=== PATIENT | female | born 1980 | race Caucasian/White ===

== ENCOUNTER 2019-02-23 17:43 | Emergency (ER) | payer OTHER ==
[~2019-02-23] VITALS: Ht 167.6 cm; Wt 104.3 kg
[2019-02-23] MEDS ORDERED: CYMBALTA30 MG PO (18:00)
[2019-02-23] MEDS ORDERED: VERAPAMIL E.R240 M1 PO (18:00)
[2019-02-23] MEDS ORDERED: TELMISARTAN-HC1 EAC1 PO (18:00)
[2019-02-23] MEDS ORDERED: CELEXA40 MG PO (18:00)
[2019-02-23] MEDS ORDERED: VALACYCLOVIR500 MG PO (18:01)
[2019-02-23] MEDS ORDERED: MINOCYCLINE HC100 M2 PO (18:01)
[2019-02-23] MEDS ORDERED: METFORMIN HCL500 MG PO (18:01)
[2019-02-23] MEDS ORDERED: LO LOESTRIN FE1 EACH PO (18:01)
[2019-02-23] MEDS ORDERED: OMEPRAZOLE40 MG PO (18:01)
[2019-02-23] MEDS ORDERED: OZEMPIC0.25 MG/0. SUBQ (18:02)
[2019-02-23] MEDS ORDERED: KETOCONAZOLE15 GM TOP (18:02)
[2019-02-23] MEDS ORDERED: ACZONE60 GM TOP (18:02)
[2019-02-23] MEDS ORDERED: RESTORIL30 MG PO (18:04)
[2019-02-23] MEDS ORDERED: IMITREX20 MG NASAL (18:04)
[2019-02-23] MEDS ORDERED: FLONASE 0.05%50 MCG NASAL (18:04)
[2019-02-23] MEDS ORDERED: ATIVAN1 MG PO (18:04)
[2019-02-23] MEDS ORDERED: ROBAXIN 750 MG750 MG PO (20:00)
[2019-02-23 20:28] VITALS: BP 144/81
== END 2019-02-23 20:29 | disposition home or self-care (01) ==
LOC: M.ERS 17:43
DX: S16.1XXA Strain of muscle, fascia and tendon at neck level, initial encounter (principal); R51 Headache; I10 Essential (primary) hypertension; E11.9 Type 2 diabetes mellitus without complications; V49.40XA Driver injured in collision with unspecified motor vehicles in traffic accident, initial encounter; Y93.89 Activity, other specified; Y92.89 Other specified places as the place of occurrence of the external cause; Y99.8 Other external cause status